=== PATIENT | male | born 1935 | race Caucasian/White ===

== ENCOUNTER 2017-02-23 09:41 | Day surgery (SDC) | payer OTHER ==
[2017-02-20 18:30] LABS: BASOPHILS 0.5 %; BASOPHILS ABSOLUTE 0.05 10/3/uL (0.0-0.16); EOSINOPHILS 0.6 %; EOSINOPHILS ABSOLUTE 0.06 10/3/uL (0.0-0.53); HEMATOCRIT 43.1 % (40.0-51.0); HEMOGLOBIN 14.3 g/dL (13.6-17.8); IMMATURE GRANULOCYTES 0.4 %; IMMATURE GRANULOCYTES ABSOLUTE 0.04 10/3/uL (0.0-0.11); LYMPHOCYTES 12.9 %; LYMPHOCYTES ABSOLUTE 1.37 10/3/uL (0.67-4.30); MEAN CORPUS HGB CONC 33.2 g/dL (32.0-36.0); MEAN CORPUSCULAR HEMOGLOB 32.3 pg (26.0-34.0); MEAN CORPUSCULAR VOLUME 97.3 fL (80-100); MEAN PLATELET VOLUME 10.2 fL (9.2-13.0); MONOCYTES ABSOLUTE 1.17 10/3/uL (0.21-1.20); NEUTROPHILS 74.6 %; PLATELET COUNT 347 10/3/uL (150-400); RBC DISTRIBUTION WIDTH 13.8 % (12.0-16.0); RED CELL COUNT 4.43 10/6/uL (4.7-6.1); WHITE BLOOD CELLS 10.6 10/3/uL (4.5-10.5)
[2017-02-20 18:32] LABS: MANUAL DIFF NO %
[2017-02-20 18:43] LABS: A/G RATIO 0.9 (0.7-1.9); ALBUMIN 3.3 G/DL (3.5-5.0); ALKALINE PHOSPHATASE 290 U/L (45-117); BUN (BLOOD UREA NITROGEN) 13 MG/DL (6-23); CHLORIDE, SERUM 99 MMOL/L (96-112); CO2 (CARBON DIOXIDE) 31 MMOL/L (24-34); CREATININE 1.32 MG/DL (0.70-1.30); GFR AFRICAN AMERICAN 58 ML/MIN (>=60); GFR NON AFRICAN AMERICAN 50 ML/MIN (>=60); GLOBULIN 3.8 G/DL (2.5-4.1); GLUCOSE, SERUM 96 MG/DL (60-99); POTASSIUM, SERUM 4.4 MMOL/L (3.5-5.3); SGOT(AST) 99 U/L (5-40); SGPT(ALT) 44 U/L (5-65); SODIUM, SERUM 137 MMOL/L (135-148); TOTAL BILIRUBIN 0.8 MG/DL (0-1.2); TOTAL PROTEIN 7.1 G/DL (6.0-8.5)
--- NOTE | ~2017-02-23 | PREOPHP ---
PreOp History and Physical [address] [address] NAME: JACKIE WALKER : 35 STATUS : PRE [facility] PAT#: [id number] AGE: 81 ADM/REG DATE : MR#: [id number] REPORT SERV DATE: 02/23/17 DICTATED BY: CALLY OSUNA III DATE: 02/17/17 REPORT STATUS : Draft TRANSCRIBED BY: MODL DATE: 02/17/17 HISTORY OF PRESENT ILLNESS: This 81-year-old male comes to the operating room for a subclavian Port-A-Cath placement to allow for chronic IV access for chemotherapy. The patient was recently diagnosed with stage IV colon cancer, with hepatic metastasis. He comes now for Port-A-Cath placement to allow for chronic IV access for chemotherapy. PAST MEDICAL HISTORY: 1. Hyperlipidemia. 2. Atrial fibrillation. 3. Gastroesophageal reflux disease. 4. History of prostate cancer. MEDICATIONS: Lovastatin; Osteo. PAST SURGICAL HISTORY: Includes right inguinal hernia repair; prostatectomy; and artificial sphincter for bladder control. FAMILY HISTORY: Positive for diabetes and heart disease. SOCIAL HISTORY: No history of tobacco or alcohol use. ALLERGIES: NONE. REVIEW OF SYSTEMS: The patient complains of fatigue and weight loss. PHYSICAL EXAMINATION: OBJECTIVE: GENERAL: This is a male, in no acute distress. He is alert and oriented x3. HEENT: Unremarkable. NEUROLOGIC: Cranial nerves 2 through 12 are normal. LUNGS: Clear. CARDIAC: Normal. ABDOMEN: Soft and nontender. LABORATORY DATA: CT scan of the abdomen and pelvis shows evidence for multiple hepatic metastasis. CT directed biopsy of one of these hepatic lesions confirms metastatic colon carcinoma. His CT scan shows a mass in the distal transverse colon with direct mesenteric extension and adjacent enlarged lymph nodes. ASSESSMENT: 1. 81-year-old male with metastatic stage IV colorectal cancer, with hepatic metastasis. 2. Hyperlipidemia. 3. Atrial fibrillation. 4. Gastroesophageal reflux disease. 5. History of prostate cancer. PLAN: The patient comes to the operating room now for subclavian vein Port-A-Cath placement. PreOp History and Physical [address] [address] NAME: JACKIE WALKER : 35 STATUS : PRE [facility] PAT#: [id number] AGE: 81 ADM/REG DATE : MR#: [id number] REPORT SERV DATE: 02/23/17 DICTATED BY: CALLY OSUNA III DATE: 02/17/17 REPORT STATUS : Draft TRANSCRIBED BY: DAMI DATE: 02/17/17 This procedure, the risks, benefits, and alternatives, including not limited to the risk of bleeding, infection, pneumothorax, air embolus, pericardial tamponade, dislodgement of the Port-A-Cath tubing requiring extraction, and unforeseen complications including deep venous thrombosis, pulmonary embolus, myocardial infarction, stroke, pneumonia, and , have been explained to the patient prior to surgery. His questions have been answered. He understands the risks and agrees to the surgery as planned. PAEVL/DAMI Cally Osuna III, M.D. / [phone]
--- NOTE | ~2017-02-23 | OP ---
Record Of Operation [facility] [address] [place]. [address] NAME: JACKIE WALKER : 35 STATUS : [facility]#: [id number] AGE: 81 ADM/REG DATE : 02/23/17 MR#: [id number] REPORT SERV DATE: 02/23/17 DICTATED BY: CALLY OSUNA III DATE: 02/23/17 REPORT STATUS : Draft TRANSCRIBED BY: MODFiliberto DATE: 02/23/17 DATE OF PROCEDURE: 02/23/2017 PREOPERATIVE DIAGNOSIS: Stage IV colorectal cancer, with need for Port-A-Cath placement to allow for chronic IV access for chemotherapy. POSTOPERATIVE DIAGNOSIS: Stage IV colorectal cancer, with need for Port-A-Cath placement to allow for chronic IV access for chemotherapy. PROCEDURE: Right subclavian vein Port-A-Cath placement with fluoroscopy. ANESTHESIA: General with intubation. COMPLICATIONS: None. ESTIMATED BLOOD LOSS: Less than 5 mL. SPECIMENS: None. DRAINS: None. LAP AND SPONGE COUNT: Correct x3. BRIEF HISTORY: This 81-year-old male was recently diagnosed with stage IV colorectal cancer. We have been asked by his medical oncologist to place a Port-A-Cath to allow for chronic IV access for chemotherapy. This procedure, the risks, benefits, and alternatives, including not limited to the risk for bleeding, infection, pneumothorax, air embolus, pericardial tamponade, failure of the port to function, infection of the port or subclavian vein thrombosis requiring removal the port, dislodgement of the Port-A-Cath tubing requiring extraction, and unforeseen complications including deep venous thrombosis, pulmonary embolus, myocardial infarction, stroke, pneumonia, and , were fully explained to the patient prior to surgery. His questions were answered. He understood the risks and agreed to surgery as planned. DESCRIPTION OF PROCEDURE: After being appropriately identified, and after discussing risks of surgery with the patient again in the preoperative area, the patient was taken to the operating room and placed in the supine position on the operating room table. General anesthesia was administered, and the patient was intubated without difficulty. The upper chest and neck areas were prepped and draped sterilely in the usual fashion. After an appropriate "time-out" per JCAHO standards, gauge needle was used to identify the right subclavian vein. The vein was identified on the first pass of the needle. A guidewire was passed through the needle and the needle was removed. Fluoroscopy was performed, confirming the tip of the guidewire to be in the correct position of superior vena cava. A small transverse incision was then made at the exit site of the guidewire from the skin. A subcutaneous infraclavicular pocket was made of the appropriate size for the Port-A-Cath housing. The Port-A-Cath housing was connected to the tubing. The Port-A-Cath housing and Record Of Operation [facility] [address] [facility] [place]. [address] NAME: JACKIE WALKER : 35 STATUS : [facility] PAT#: [id number] AGE: 81 ADM/REG DATE : 02/23/17 MR#: [id number] REPORT SERV DATE: 02/23/17 DICTATED BY: CALLY OSUNA III DATE: 02/23/17 REPORT STATUS : Draft TRANSCRIBED BY: MODFiliberto DATE: 02/23/17 tubing were flushed with a heparin solution, and the tubing was cut to the appropriate length. The introducer was then placed over the guidewire. The guidewire and inner dilator were removed. The Port-A-Cath tubing was then placed through the sheath as the sheath was peeled away. This went very smoothly. The Port-A-Cath housing was positioned in the infraclavicular pocket. It was secured in place with 2-0 silk sutures. It was accessed with a Balir needle and noted to aspirate blood easily. It was then flushed with heparin solution noted to flush easily. Repeat fluoroscopy was performed, confirming the tip of the Port-A-Cath tubing to be in the correct position in superior vena cava. Hemostasis was assured. The subcutaneous tissue was closed with a running 3-0 Vicryl suture. The skin was closed with running subcuticular 4-0 Monocryl stitch. The incision was injected with 0.5% Marcaine. Dressings were applied. Anesthesia was reversed, and the patient was taken to recovery room in stable condition. The patient tolerated the procedure well. The patient will be discharged later when stable and comfortable after the chest x-ray has been cleared per Radiology. The patient's family was advised that the wound should be kept clean and dry for 48 hours, that there should be no driving for 2-3 days after surgery or while using narcotics, and the patient shall resume usual medications. The patient was asked to return in two weeks for followup or sooner for any fever, chills, wound drainage, or other problems prior to that time. RHJ/MODL Cally Osuna III, M.D. / [id number] CC: Julisa Torres III, Mark
[~2017-02-23 09:41] MED LIST: ADVIL PO; MEVACOR PO; NORCO1 TA1 PO; OSTEO BI-FLEX1 EACH PO; VITAMIN D1000 UNI1 PO; ZOFRANODT8 PO
[2017-04-14] MEDS ORDERED: DSS PO (09:29)
== END 2017-02-23 18:04 | disposition home or self-care (01) ==
LOC: SDC 09:41
PROVIDERS: Surgery
PROC: 02HV33Z Insertion of Infusion Device into Superior Vena Cava, Percutaneous Approach (ICD-10-PCS; 2017-02-23)
PROC: B518ZZA Fluoroscopy of Superior Vena Cava, Guidance (ICD-10-PCS; 2017-02-23)
PROC: 0JH60XZ Insertion of Tunneled Vascular Access Device into Chest Subcutaneous Tissue and Fascia, Open Approach (ICD-10-PCS; principal; 2017-02-23 11:45)
DX: C19 Malignant neoplasm of rectosigmoid junction (principal); C78.7 Secondary malignant neoplasm of liver and intrahepatic bile duct; K21.9 Gastro-esophageal reflux disease without esophagitis; K59.00 Constipation, unspecified; I48.91 Unspecified atrial fibrillation; E78.5 Hyperlipidemia, unspecified; E78.00 Pure hypercholesterolemia, unspecified; M19.90 Unspecified osteoarthritis, unspecified site; Z85.46 Personal history of malignant neoplasm of prostate; Z98.890 Other specified postprocedural states; Z90.79 Acquired absence of other genital organ(s); Z83.3 Family history of diabetes mellitus; Z82.49 Family history of ischemic heart disease and other diseases of the circulatory system; Z88.8 Allergy status to other drugs, medicaments and biological substances; Z79.899 Other long term (current) drug therapy; Z98.41 Cataract extraction status, right eye; Z98.42 Cataract extraction status, left eye; Z96.1 Presence of intraocular lens
CPT/HCPCS: 71010; 71020-PO; 77001; 80053; 85025; 93005; C1751; J0690; J2405; J3010